=== PATIENT | male | born 1995 | race Caucasian/White ===

== ENCOUNTER 2017-04-11 11:37 | Emergency (ER) | payer OTHER ==
[~2017-04-11] VITALS: Ht 195.6 cm; Wt 128.4 kg
[~2017-04-11 11:37] MED LIST: BACTROBAN22 GM TOP; KEFLEX500 MG PO; LAMICTAL200 MG PO; ZOFRAN ODT4 MG PO
== END 2017-04-11 16:26 | disposition home or self-care (01) ==
LOC: ED 11:37
DX: F10.10 Alcohol abuse, uncomplicated (principal); R11.2 Nausea with vomiting, unspecified; F17.200 Nicotine dependence, unspecified, uncomplicated; G40.909 Epilepsy, unspecified, not intractable, without status epilepticus; Z79.899 Other long term (current) drug therapy; Y90.1 Blood alcohol level of 20-39 mg/100 ml
CPT/HCPCS: 80053; 81001; 83690; 85025; 96361; 96374; 96375; 96376; 99284; G0480; J2405; J2550; J7030

== ENCOUNTER 2017-07-09 06:59 | Emergency (ER) | payer OTHER ==
[~2017-07-09] VITALS: Ht 195.6 cm; Wt 130.2 kg
== END 2017-07-09 07:21 | disposition home or self-care (01) ==
LOC: ED 06:59
DX: R22.0 Localized swelling, mass and lump, head (principal)

== ENCOUNTER 2019-09-25 23:52 | Emergency (ER) | payer OTHER ==
[~2019-09-25] VITALS: Ht 195.6 cm; Wt 130.2 kg
[2019-09-26] MEDS ORDERED: VENTOLIN HFA18 GM INH (00:11)
[2019-09-26] MEDS ORDERED: AUGMENTIN 875-1 EACH PO (00:12)
[2019-09-26] MEDS ORDERED: TESSALON PERLE100 MG PO (00:12)
== END 2019-09-26 02:06 | disposition home or self-care (01) ==
LOC: ED 23:52
DX: R10.31 Right lower quadrant pain (principal); Z87.891 Personal history of nicotine dependence; Z79.899 Other long term (current) drug therapy
CPT/HCPCS: 74177; 80053; 81001; 83690; 85025; 99284-25; J1170; J2405; J7030; Q9967